=== PATIENT | female | born 2000 | race Caucasian/White ===

== ENCOUNTER 2023-01-26 18:42 | Emergency (ER) | payer OTHER ==
[2023-01-26] VITALS (16 sets, daily range): BP systolic 77–142; BP diastolic 39–92
[~2023-01-26] VITALS: Ht 160 cm; Wt 53.5 kg
[~2023-01-26 18:42] MED LIST: ANTIPY/BENZO OT; CEPHALEXIN500 MG PO; CIPRODEX1 ML OT; CORTISPORIN OTI10 M2 AD
[2023-01-26 19:10] LABS: BASO% 0.6 % (0-3); EOS% 3.8 % (0-8); HEMATOCRIT 36.6 % (37.0-47.0); HEMOGLOBIN 11.7 g/dl (12.0-16.0); LYMPH% 48.8 % (15-41); MEAN CELL VOLUME 88.6 fL CALC (80.0-100.0); MEAN CORPUSCULAR HGB 28.3 pG CALC (26.0-32.0); MONO% 4.5 % (2-13); NEUT# 2.91 thou/uL (2.00-7.15); NEUT% 42.3 % (42-76); RED BLOOD COUNT 4.13 mill/uL (4.20-5.60)
[2023-01-26 19:21] LABS: ALBUMIN 5.1 g/dL (3.2-5.0); ALKALINE PHOSPHATASE 49 u/l (38-126); ANION GAP 17 (6-22 (CALC)); BUN 19 mg/dL (7-17); BUN/CREATININE RATIO 35 (12-20 (CALC)); CARBON DIOXIDE 23 mmol/l (22-30); CHLORIDE 106 mmol/l (95-108); CREATININE 0.6 mg/dL (0.5-1.0); GFR FOR AFR.AMER. > 60 ML/MIN (>=60 (CALC)); GFR OTHER RACES > 60 ML/MIN (>=60 (CALC)); POTASSIUM 4.1 mmol/l (3.5-5.1); SGOT/AST 22 u/l (14-36); SODIUM 142 mmol/l (137-146); TOTAL PROTEIN 7.8 g/dL (6.3-8.2)
[2023-01-26 19:22] LABS: BILIRUBIN, TOTAL 0.2 mg/dL (0.02-1.3)
[2023-01-26 19:28] LABS: PROTHROMBIN TIME 9.8 SECONDS (9.0-12.5)
== END 2023-01-26 21:31 | disposition home or self-care (01) ==
LOC: ED 18:42 → ED-I 20:10 → ED 21:31
PROVIDERS: Family Medicine
DX: R20.2 Paresthesia of skin (principal); R20.0 Anesthesia of skin; R51.9 Headache, unspecified; R53.1 Weakness
CPT/HCPCS: Q9967